=== PATIENT | female | born 1990 | race African-American/Black ===

== ENCOUNTER → 2020-07-12 | Outpatient (CLI) | payer OTHER ==
--- NOTE | 2020-07-12 11:54 | KCIC ---
Left breast ultrasound: Reason for examination: Left breast lump. Ultrasound examination of the left breast and axilla was performed. At the 1:00 position 5 cm from the nipple and corresponding to the area of clinical concern, there is a 2.5 cm simple cyst. No other cystic or solid nodules are seen. No abnormal appearing lymph nodes are seen in the left axilla. IMPRESSION: 2.5 cm simple cyst at the 1:00 position. No suspicious abnormalities are seen. Recommend clinical follow-up. BI-RADS Category 2: Benign. "Our facility is accredited by the [employer] Mammography [employer]." This patient's information has been entered into a reminder system for the patient to be notified with the results of her examination and a target date for the next mammogram. Electronically signed by: Honey Lanza MD (07/12/2020 11:52 AM) [email or web address]
== END ==
LOC: KCIC US 08:03
PROVIDERS: ATTEND Obstetrics & Gynecology
DX: N60.02 Solitary cyst of left breast (principal)
CPT/HCPCS: 76641